=== PATIENT | female | born 1985 | race American Indian/Alaskan Native ===

== ENCOUNTER 2016-08-31 10:27 | Day surgery (SDC) | payer OTHER ==
[2016-08-31 11:18] VITALS: BMI 26.7
[2016-08-31] MEDS ORDERED: Midazolam 2 MG/2 ML VIAL ONE (11:59)
[2016-08-31] MEDS ORDERED: Propofol 10 mg/ml Inj (20 ML) ONE (11:59)
[2016-08-31 14:48] VITALS: RESP 14
[2016-08-31 14:54] VITALS: BP 112/61; PULSE 78; TEMP 98; O2SAT 100
== END 2016-08-31 13:48 | disposition home or self-care (01) ==
LOC: C.ENDO 10:27
PROVIDERS: ATTEND Internal Medicine Gastroenterology
DX: K29.50 Unspecified chronic gastritis without bleeding (principal); Z87.11 Personal history of peptic ulcer disease; Z87.19 Personal history of other diseases of the digestive system
CPT/HCPCS: 43239; 84703; 88305; 88342; J2250; J2704

== ENCOUNTER 2017-08-09 08:19 | Day surgery (SDC) | payer OTHER ==
[2017-08-09 09:14] VITALS: O2SAT 100
[2017-08-09] MEDS ORDERED: Midazolam 2 MG/2 ML VIAL ONE (10:43)
[2017-08-09] MEDS ORDERED: Propofol 10 mg/ml Inj (20 ML) ONE (10:43)
[2017-08-09 12:40] VITALS: TEMP 98
[2017-08-09 12:42] VITALS: RESP 15
[2017-08-09 12:48] VITALS: BP 128/72; PULSE 78
== END 2017-08-09 13:30 | disposition home or self-care (01) ==
LOC: C.ENDO 08:19
PROVIDERS: ATTEND Internal Medicine Gastroenterology
DX: K29.70 Gastritis, unspecified, without bleeding (principal); K92.0 Hematemesis; K30 Functional dyspepsia; K21.9 Gastro-esophageal reflux disease without esophagitis
CPT/HCPCS: 43239; 84703; 88305; J2001; J2250; J2704

== ENCOUNTER 2017-11-05 11:17 | Day surgery (SDC) | payer OTHER ==
[2017-11-02 09:29] VITALS: BMI 28.3
[2017-11-05] MEDS ORDERED: ceFAZolin 1 gm in NS 1 GM/100 ML BAG IVPB ONE (13:05)
[2017-11-05] MEDS ORDERED: Lidocaine/Epinephrine 1% 1:100000 10 ML IJ ONE (13:05)
[2017-11-05] MEDS ORDERED: Propofol 10 mg/ml Inj (20 ML) ONE (13:52)
[2017-11-05] MEDS ORDERED: Midazolam 2 MG/2 ML VIAL ONE (13:52)
[2017-11-05] MEDS ORDERED: Succinylcholine Chloride 20 mg/ml Syr (5 ml) IV ONE (14:22)
[2017-11-05] MEDS ORDERED: Rocuronium 10 mg/ml (5 ml) ONE (14:22)
[2017-11-05] MEDS ORDERED: Neostigmine Methylsulfate 3mg/3ml Syringe IV ONE (14:47)
--- NOTE | 2017-11-05 14:52 | PCM.SURG1 ---
Surgeon's Initial Post Op Note - Surgeon's Notes Surgeon: Hayder Stock Replenisher: Chaparro PGY4 Type of Anesthesia: General Endo Pre-Operative Diagnosis: Hemorrhoids Operative Findings: Internal hemorrhoids Post-Operative Diagnosis: same Operation Performed: PPH Specimen/Specimens Removed: rectal mucosa Estimated Blood Loss: EBL {In ML}: 10 Blood Products Given: N/A Drains Used: No Drains Post-Op Condition: Good Date of Surgery/Procedure: 11/05/17 Time of Surgery/Procedure: 14:52
[2017-11-05] MEDS: HYDROmorphone 0.5 mg/0.5 ml ISec IVP PRN ×2 (15:45→16:10)
[2017-11-05] MEDS ORDERED: HYDROmorphone 0.5 mg/0.5 ml ISec ONE (15:49)
[2017-11-05] MEDS ORDERED: Lactated Ringer's 500 ML IV ONE (16:30)
[2017-11-05 18:36] VITALS: BP 117/73; PULSE 101; RESP 20; TEMP 97.8; O2SAT 100
--- NOTE | 2017-11-06 23:33 | OP ---
PROCEDURE DATE: 11/05/2017 SURGEON: Yin Singletary MD [employer] WORKER: Sampson Mayfield DO ANESTHESIA: General. PREOPERATIVE DIAGNOSIS: Prolapsing internal hemorrhoids. POSTOPERATIVE DIAGNOSIS: Prolapsing internal hemorrhoids. PROCEDURE: Procedure for prolapse and hemorrhoids. DESCRIPTION OF OPERATION: The patient was anesthetized and placed on the operating table in the prone position. The operating table was Jackknife somewhat. The buttocks were taped apart. The anal area was prepped and draped in the usual sterile manner. The digital rectal exam was performed, identifying no masses. 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 The operating anoscope was positioned within the rectum and sutured to the buttocks with 0 silk sutures. The pursestring of 2-0 Prolene was then placed at the depth of approximately 6 cm from the anal verge with six submucosal bites taken circumferentially, and the suture ends were passed through the guide holes of the PPH stapler. The anvil of the stapler was positioned beyond the pursestring, and tension was applied to the pursestring. The stapler was closed to the indicated depth and fired. The stapler was then opened as directed and removed. Complete ring of tissue was identified within the stapler. The anoscope was then used to evaluate the staple line and in one area, a [id number] suture of 3-0 chromic was used for some oozing. By palpation, the staple line was complete and circumferential. The anal area was irrigated and again irrigated, observed for hemostasis. A Vaseline gauze packing was placed. The anoscope was removed. The patient tolerated the procedure well and transferred to recovery room in stable condition. Estimated blood loss for the procedure was 10 mL. Yin Singletary MD
== END 2017-11-05 18:30 | disposition home or self-care (01) ==
LOC: C.SDS 11:17
PROVIDERS: ATTEND Specialist
DX: K64.9 Unspecified hemorrhoids (principal)
CPT/HCPCS: 46947; J0690; J1100; J1170; J1885; J2001; J2250; J2405; J2704; J2710; J3010; J7120